=== PATIENT | male | born 2000 | race Caucasian/White ===

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

== ENCOUNTER 2024-08-31 01:44 | Emergency (ER) | payer OTHER ==
[2024-08-31 01:49] VITALS: RESP 18
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
[2024-08-31] MEDS: LIDOCAINE 1% INJ 10MG/ML (20 ML MDV) SQ ONE (02:15)
[2024-08-31] MEDS: DIPH,PERTUS(ACELL)TETVAC-LF 0.5 ML VIAL IM ONE (02:16)
[2024-08-31] MEDS: BACITRACIN OINT 1 EACH PACKET TOPICAL ONE (02:16)
[2024-08-31 03:08] VITALS: BP 130/78; PULSE 98; TEMP 98.2
== END 2024-08-31 03:08 | disposition home or self-care (01) ==
LOC: EC 01:44
DX: S61.411A Laceration without foreign body of right hand, initial encounter (principal); F17.290 Nicotine dependence, other tobacco product, uncomplicated; Z23 Encounter for immunization; W22.09XA Striking against other stationary object, initial encounter
CPT/HCPCS: 90715; 99283; 12001; 90471; J2003

== ENCOUNTER 2025-01-29 17:03 | Emergency (ER) | payer OTHER ==
[2025-01-29 17:11] VITALS: PULSE 69; RESP 18
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
[2025-01-29 19:03] VITALS: BP 146/81; TEMP 98.1
== END 2025-01-29 19:03 | disposition home or self-care (01) ==
LOC: EC 17:03
DX: S00.03XA Contusion of scalp, initial encounter (principal); F17.290 Nicotine dependence, other tobacco product, uncomplicated; Y04.2XXA Assault by strike against or bumped into by another person, initial encounter; Y92.59 Other trade areas as the place of occurrence of the external cause
CPT/HCPCS: 70450; 70486; 99283